=== PATIENT | female | born 1995 | race Caucasian/White ===

== ENCOUNTER 2018-07-09 11:49 | Day surgery (SDC) | payer OTHER ==
[~2018-07-09 11:49] MED LIST: BUPIVACAINE 0.5%-EPI 1:200000 PF 30 ML VIAL ONE
[2018-07-09] MEDS ORDERED: LACTATED RINGERS 1,000 ML IV ONE ×2 (12:15→14:32)
[2018-07-09 12:23] LABS: HCG UR QUAL NEGATIVE
--- NOTE | 2018-07-09 13:13 | ANESTHESIA ---
Pre-Anesthesia VS, & Labs - Diagnosis desires sterilization - Procedure bilateral salphingectomy Vital Signs: Temp Pulse Resp BP Pulse Ox 36.2 C L 68 16 104/61 98 07/09/18 11:57 07/09/18 11:57 07/09/18 11:57 07/09/18 11:57 07/09/18 11:57 Height 5 ft 2 in Weight (kg) 58.4 kg - NPO >8 hours - Is Patient ?: No Home Medications and Allergies Home Medications: Ambulatory Orders No Known Home Medications 07/01/18 No Known Home Medications 07/01/18 Allergies/Adverse Reactions: Allergies Allergy/AdvReac Type Severity Reaction Status Date / Time Antifungal - Imidazole Allergy Rash Verified 07/09/18 12:14 bacitracin Allergy Rash Verified 07/09/18 12:14 clotrimazole Allergy Rash Verified 07/09/18 12:14 Anes History & Medical History - Anesthetic History Anesthesia Complications: reports: No previous complications - Medical History Cardiovascular: reports: None Pulmonary: reports: Other Gastrointestinal: reports: None Urinary: reports: None Musculoskeletal: reports: None Endocrine/Autoimmune: reports: None Skin: reports: None Smoking Status: Never smoker Exam General: Alert Mouth Opening: Greater than 4 Fingerbreadths Mallampati classification: I Respiratory: Lungs clear Cardiovascular: Regular rate Mental/Cognitive Status: Alert/Oriented X3 Plan Anesthesia Type: General Consent for Procedure(s) Verified and Reviewed: Yes Code Status: Attempt Resuscitation ASA classification: 1-Healthy patient Is this case an emergency?: No
[2018-07-09] MEDS ORDERED: BUPIVACAINE 0.5%-EPI 1:200000 PF 30 ML VIAL SUBQ ONE ×2 (13:42)
[2018-07-09] MEDS ORDERED: LIDOCAINE-MPF 2% 5 ML VIAL IM ONE (14:10)
[2018-07-09] MEDS ORDERED: DEXAMETHASONE 4 MG/ML VIAL IVP ONE (14:10)
[2018-07-09] MEDS ORDERED: NEOSTIGMINE 1 MG/1 ML 10 ML MDV IVP ONE (14:10)
[2018-07-09] MEDS ORDERED: GLYCOPYRROLATE 1 MG/5 ML VIAL IVP ONE (14:10)
[2018-07-09] MEDS ORDERED: KETOROLAC 30 MG/ML VIAL IVP ONE (14:10)
[2018-07-09] MEDS ORDERED: ONDANSETRON 4 MG/2 ML VIAL IVP ONE (14:10)
[2018-07-09] MEDS ORDERED: PROPOFOL 200 MG/20 ML VIAL IVP ONE (14:10)
[2018-07-09] MEDS ORDERED: fentaNYL 100 MCG/2 ML VIAL IVP ONE (14:10)
[2018-07-09] MEDS ORDERED: MIDAZOLAM 2 MG/2 ML VIAL IVP ONE (14:10)
[2018-07-09] MEDS ORDERED: diphenhydrAMINE INJ 50 MG/ML VIAL IVP ONE (14:10)
[2018-07-09] MEDS ORDERED: HYDROcod/ACETAM 10 MG/325 MG TABLET PO PRN (14:34)
--- NOTE | 2018-07-09 14:40 | OPERATIVE REPORT ---
Operative Report - General Planned Procedure: laparoscopic bilateral salpingectomies Pre-Op Diagnosis: undesired fertility Procedure Performed: Laparoscopic bilateral salpingectomies Laparoscopic biopsies of posterior uterine fundus Laparoscopic biopsies of right uterosacral ligament Fulguration of endometriosis laparoscopic bilateral salpingectomies Post Op Diagnosis: Same plus endometriosis - Procedure Note Primary Surgeon: Barbara Secondary Surgeon: Roby Anesthesia Provider: Esperanza Anesthesia Technique: General ET tube Pathology: Portions of both fallopian tubes Biopsies of posterior uterus Biopsy of right uterosacral ligament Complications: None - Other Other Information/Narrative: Exam under anesthesia: The uterus was of normal size shape and consistency and retroverted. There were no adnexal masses. Operative findings: The uterus was of normal size shape and consistency. It was covered with small clear blebs over the fundus. Posterior uterus had filmy adhesions. There was some Keeley's window in the left posterior cul-de-sac as well as an endometriotic implant. Was an endometriotic implant in the mesosalpinx adjacent to the right fimbria. The rest of the posterior cul-de-sac and the anterior cul-de-sac were clear. Description of operation: The patient was brought to the operating room and placed supine on the operating table and was given general oral endotracheal anesthesia. She was then prepped and draped in the usual sterile fashion in low lithotomy stirrups. A timeout was performed. An exam under anesthesia was performed. Speculum was placed in her vagina and a HUMI uterine manipulator was placed. Attention was returned to the abdomen where the umbilicus was infiltrated with 5 cc of half percent Marcaine and a midline stab incision was made. Veress needle was inserted into the abdomen and its position verified by hanging drop technique. The abdomen was insufflated to 2 L of carbon dioxide after which the Veress needle was removed and replaced by a 5 mm laparoscopic trocar and sleeve with the laparoscope in place allowing direct visualization of entry into the abdomen. The trocar was removed and replaced by the laparoscope. A 5 mm trocar sites were chosen lateral to the inferior epigastric vessels in each lower quadrant. Each site was infiltrated with 5 cc of half percent Marcaine, stab incisions were made, and 5 mm trochars were placed under direct visualization each tube was grasped at its fimbriated end and cutting coagulating forceps were used to divide the tube from the mesosalpinx down to the level of the cornu after which the tube was divided and removed through 1 of the 5 mm trochars under direct visualization. Attention was then turned to the filmy adhesions on the posterior surface of the uterus which were divided and removed for pathologic examination. Blebs on the right uterosacral ligament were divided and removed for pathologic examination. Multiple blebs on the fundus of the uterus were coagulated and the whole abdomen was copiously irrigated with normal saline. When hemostasis was judged adequate instruments were withdrawn from the abdomen, the abdomen was desufflated to the extent possible, and the incisions were closed with 4-0 Monocryl, covered with Dermabond, instruments were withdrawn from the vagina and the patient was awakened and taken to the recovery room in stable condition.
[2018-07-09] MEDS ORDERED: MEPERIDINE 50 MG/ML VIAL ONE (14:56)
[2018-07-09] MEDS ORDERED: HYDROcod/ACETAM 5/325 MG TABLET ONE (16:01)
[2018-07-09 16:14] VITALS: BP 110/62
== END 2018-07-09 11:50 | disposition home or self-care (01) ==
LOC: SDS 11:49
PROVIDERS: ATTEND Obstetrics & Gynecology
PROC: 0UB94ZX Excision of Uterus, Percutaneous Endoscopic Approach, Diagnostic (ICD-10-PCS; 2018-07-09)
PROC: 0UB44ZX Excision of Uterine Supporting Structure, Percutaneous Endoscopic Approach, Diagnostic (ICD-10-PCS; 2018-07-09)
PROC: 0U5F4ZZ Destruction of Cul-de-sac, Percutaneous Endoscopic Approach (ICD-10-PCS; 2018-07-09)
PROC: 0UT74ZZ Resection of Bilateral Fallopian Tubes, Percutaneous Endoscopic Approach (ICD-10-PCS; principal; 2018-07-09 13:00)
DX: Z30.2 Encounter for sterilization (principal); N80.3 Endometriosis of pelvic peritoneum
CPT/HCPCS: 58661; 58662; 81025; A9270; J1200; J2175; J7120

== ENCOUNTER 2018-12-06 16:28 | Emergency (ER) | payer OTHER ==
[2018-12-06] MEDS ORDERED: HYDROcod/ACETAM 5/325 MG TABLET PO STA (16:44)
[2018-12-06] MEDS ORDERED: IBUPROFEN 800 MG TABLET PO STA (16:44)
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
--- NOTE | 2018-12-06 17:48 | XRAY Report ---
Reason: cough Procedure Date: 12/06/2018 Accession Number: [id number] / [id number] Procedure: XR - Chest 2 View X-Ray CPT Code: 91558 FULL RESULT: EXAM: CHEST RADIOGRAPHY EXAM DATE: 12/06/2018 05:24 PM. CLINICAL HISTORY: Cough. COMPARISON: CHEST 2 VIEW PA/LAT 01/19/2014 11:54 PM. TECHNIQUE: 2 views. FINDINGS: Lungs/Pleura: No focal opacities evident. No pleural effusion. No pneumothorax. Normal volumes. Mediastinum: Heart and mediastinal contours are unremarkable. Other: None. IMPRESSION: Normal 2-view chest radiography. [facility]
[2018-12-06 17:59] VITALS: BP 113/73
== END 2018-12-06 17:51 | disposition home or self-care (01) ==
LOC: ED 16:28
DX: S20.211A Contusion of right front wall of thorax, initial encounter (principal); S20.311A Abrasion of right front wall of thorax, initial encounter; V43.62XA Car passenger injured in collision with other type car in traffic accident, initial encounter; Y92.410 Unspecified street and highway as the place of occurrence of the external cause
CPT/HCPCS: 71046; 93005; 99283; A9270